=== PATIENT | male | born 1935 | race Caucasian/White ===

== ENCOUNTER 2016-12-08 16:01 | Emergency (ER) | payer OTHER ==
[~2016-12-08] VITALS: Ht 172.7 cm; Wt 106.6 kg
[~2016-12-08 16:01] MED LIST: ALFALFA1 EACH PO; ALL DAY ALLERGY10 M3 PO; ASCORBIC ACID500 M3 PO; B COMPLETE1 EACH PO; JALYN 0.5-0.41 EACH PO; LO-DOSE ASPIRIN81 M1 PO; OSTEO BI-FLEX1 EAC1 PO; PRAVASTATIN SOD40 MG PO; VITAMIN E400 UNIT PO
[2016-12-08] MEDS ORDERED: INDOCIN50 MG PO (18:50)
[2016-12-08 19:28] VITALS: BP 155/89
== END 2016-12-08 19:28 | disposition home or self-care (01) ==
LOC: EME 16:01
DX: M25.462 Effusion, left knee (principal); M70.862 Other soft tissue disorders related to use, overuse and pressure, left lower leg; Y93.H2 Activity, gardening and landscaping; M10.9 Gout, unspecified; E78.5 Hyperlipidemia, unspecified
CPT/HCPCS: 73564; 99281; 99283

== ENCOUNTER 2017-10-04 09:10 | Emergency (ER) | payer OTHER ==
[~2017-10-04] VITALS: Ht 172.7 cm; Wt 105.7 kg
[~2017-10-04 09:10] MED LIST changes: +INDOCIN50 MG PO
[2017-10-04 10:12] LABS: HEMATOCRIT 42.7 % (38.0-50.0); HEMOGLOBIN 14.6 G/DL (12.5-16.6); MCH 30.1 PG (29.0-34.0); MCHC 34.2 G/DL (30.0-36.0); PLATELET COUNT 226 K/uL (156-360); RBC DIS.WIDTH-CV 14.7 % (11.8-14.6); RBC DIS.WIDTH-SD 47.8 % (39-53); RED BLOOD COUNT 4.85 M/uL (4.00-5.50); WHITE BLOOD COUNT 7.3 K/uL (4.1-10.2)
[2017-10-04 10:24] LABS: CHLORIDE 102 mEq/L (99-109); POTASSIUM 4.4 mEq/L (3.7-5.4); SODIUM 135 mEq/L (136-147)
[2017-10-04 10:25] LABS: GLUCOSE 282 mg/dL (70-99)
[2017-10-04 10:29] LABS: CREATININE 1.1 mg/dL (0.6-1.3); GFR ESTIMATE (CALCULATED) > 59 mL/min/ (58.99-99999)
[2017-10-04 10:34] LABS: UREA NITROGEN (BUN) 20 mg/dL (9-23)
[2017-10-04 10:49] LABS: ERTH.SED.RATE 37 MM/HR (0-20)
[2017-10-04 11:35] LABS: C-REACTIVE PROTEIN 21.1 MG/L (0-10)
[2017-10-04] MEDS ORDERED: MORGIDOX100 MG PO (13:22)
[2017-10-04 13:23] LABS: APPEARANCE ND; CRYSTALS ND; MONONUCLEAR WBC'S ND %; POLYNUCLEAR WBC'S ND % (0-25); RED CELL COUNT ND /MM^3 (0-1); SYNOVIAL FLUID EOSINOPHILS ND % (0-25); WHITE CELL COUNT ND /MM^3 (0-200.0)
[2017-10-04 13:41] VITALS: BP 157/75
[2017-10-04 15:19] LABS: LYME DISEASE SEROLOGY SCREEN POSITIVE (NEGATIVE)
== END 2017-10-04 13:41 | disposition home or self-care (01) ==
LOC: EME 09:10
PROVIDERS: Emergency Medicine
PROC: 0R9J3ZZ Drainage of Right Shoulder Joint, Percutaneous Approach (ICD-10-PCS; principal; 2017-10-04)
DX: S46.911A Strain of unspecified muscle, fascia and tendon at shoulder and upper arm level, right arm, initial encounter (principal); Z86.19 Personal history of other infectious and parasitic diseases
CPT/HCPCS: 73030; 80048; 83605; 85027; 85651; 86140; 86617 90; 86618; 87040; 87205; 89051; 99281; 99284